=== PATIENT | male | born 1950 | race Asian ===

== ENCOUNTER 2019-04-02 08:01 | Day surgery (SDC) | payer OTHER ==
[2019-04-01 15:03] VITALS: BMI 22.6
[2019-04-02 10:13] VITALS: TEMP 97.6
[2019-04-02 10:27] VITALS: PULSE 55
[2019-04-02 13:03] VITALS: BP 107/73
--- NOTE | 2019-04-04 17:12 | PATH ---
Surgical Pathology Report Patient Name: JIHAN BUTT [facility]. Rec. #: [id number] /Age/Gender: 1950 (Age: 68) / M Account: [id number] Location: [facility]-ENDOSCOPY Taken: 04/02/2019 Received: 04/02/2019 Reported: 04/04/2019 Physicians: Steven Dugan M.D. Specimen(s) Received A: GASTRIC ANTRUM AND BODY B: ESOPHAGUS Clinical History Personal history of colon polyps, family history of colon cancer, gassy feeling Postoperative diagnosis: Gastritis chronic, normal colonoscopy Final Diagnosis A. GASTRIC ANTRUM AND BODY, BIOPSY: GASTRIC MUCOSA WITH MODERATELY ACTIVE CHRONIC GASTRITIS. IMMUNOSTAIN FOR H. PYLORI IS POSITIVE. POSITIVE FOR INTESTINAL METAPLASIA. NEGATIVE FOR DYSPLASIA. B. ESOPHAGUS, BIOPSY: ESOPHAGEAL MUCOSA WITH ACUTE AND CHRONIC ESOPHAGITIS. PAS STAIN HIGHLIGHTS FUNGAL HYPHAE, MORPHOLOGICALLY CONSISTENT WITH MACHO SPECIES. Electronically Signed Anil Sagastume M.D. Gross Description A. Received in formalin labeled "biopsy gastric antrum and body," is a 1.1 x 0.7 x 0.2 cm aggregate of chavez soft tissue fragments. The formalin is filtered and the specimen is entirely submitted in one cassette. B. Received in formalin, labeled "biopsy esophagus" are 2 chavez, irregular portions of soft tissue measuring 0.3 and 0.4 cm. in greatest dimension. The specimens are submitted in toto in one cassette. 04/03/2019 saudi04/03/2019
== END 2019-04-02 11:20 | disposition home or self-care (01) ==
LOC: JASU-ENDO 08:01
PROVIDERS: ATTEND Internal Medicine Gastroenterology
PROC: 0DB58ZX Excision of Esophagus, Via Natural or Artificial Opening Endoscopic, Diagnostic (ICD-10-PCS; 2019-04-02)
PROC: 0DB68ZX Excision of Stomach, Via Natural or Artificial Opening Endoscopic, Diagnostic (ICD-10-PCS; 2019-04-02)
PROC: 0DJD8ZZ Inspection of Lower Intestinal Tract, Via Natural or Artificial Opening Endoscopic (ICD-10-PCS; principal; 2019-04-02 10:30)
DX: Z12.11 Encounter for screening for malignant neoplasm of colon (principal); Z86.010 Personal history of colon polyps; E11.9 Type 2 diabetes mellitus without complications; Z79.84 Long term (current) use of oral hypoglycemic drugs; K29.50 Unspecified chronic gastritis without bleeding; K20.8 Other esophagitis
CPT/HCPCS: 43239; G0105

== ENCOUNTER 2023-10-20 15:59 | Emergency (ER) | payer OTHER ==
[2023-10-20 16:10] VITALS: BP 136/73; PULSE 58; RESP 18; TEMP 98.4; BMI 24.3
[2023-10-20] MEDS ORDERED: CEFUROXIME AXETIL 500 MG TABLET ONE (17:46)
[2023-10-20] MEDS: CEFUROXIME AXETIL 500 MG TABLET PO ONE (17:50)
== END 2023-10-20 18:00 | disposition home or self-care (01) ==
LOC: FER 15:59
DX: M79.89 Other specified soft tissue disorders (principal); M79.662 Pain in left lower leg
CPT/HCPCS: 93971-TC; 99284-25

== ENCOUNTER 2024-06-02 16:55 | Inpatient (IN) | payer OTHER ==
[2024-06-02 17:56] LABS: BASO % 0.4 % (0-2.0); HEMOGLOBIN 14.6 GM/dL (11.7-16.9); LYMPH % 4.9 % (8-40); MCH 31.6 pg (25.7-33.7); MCHC 33.3 g/dl (32.0-35.9); MEAN CELL VOLUME 95.1 fl (80-96); MEAN PLT VOLUME 7.7 fl (7.5-11.1); NEUT % 87.7 % (42.8-82.8); PLATELET COUNT 197 10^3/uL (134-434); RBC 4.62 M/mm3 (4.00-5.60); RDW 14.5 % (11.9-15.9)
[2024-06-02 18:14] LABS: POTASSIUM 4.4 mmol/L (3.5-5.1)
[2024-06-02 18:15] LABS: ALBUMIN 3.8 g/dl (3.4-5.0); CALCIUM 9.4 mg/dL (8.5-10.1); MAGNESIUM 2.1 mg/dL (1.8-2.4)
[2024-06-02 18:19] LABS: CREATININE 1.1 mg/dL (0.55-1.3)
[2024-06-02 18:21] LABS: BILIRUBIN,TOTAL 0.5 mg/dL (0.2-1); TOT PROT 6.8 g/dl (6.4-8.2)
[2024-06-02 18:23] LABS: BLOOD UREA NITROGEN 29.9 mg/dL (7-18)
[2024-06-02 18:33] LABS: EPI CELLS 2 /uL (0-25.1); HYALINE CASTS 0 /uL (0-3.1); PH,URINE 5.5 (5.0-8.0); URINE APPEARANCE CLEAR; URINE BACTERIA 42 /uL (0-1359); URINE BILIRUBIN NEGATIVE (NEGATIVE); URINE COLOR YELLOW; URINE GLUCOSE (UA) 3+ (NEGATIVE); URINE KETONE 1+ (NEGATIVE); URINE LEUK ESTERASE NEGATIVE (NEGATIVE); URINE NITRITE NEGATIVE (NEGATIVE); URINE PROTEIN TRACE (NEGATIVE); URINE RBC 120 /uL (0-23.9); URINE UROBILINOGEN 0.2 mg/dL (0.2-1.0); URINE WBC 5 /uL (0-25.8)
[2024-06-02] MEDS: ACETAMINOPHEN 500 MG TABLET (FP) PO ONE (18:43)
[2024-06-02] MEDS ORDERED: ACETAMINOPHEN 500 MG TABLET (FP) ONE (18:45)
[2024-06-02] MEDS: LACTATED RINGERS SOLUTION 1000 ML INFUS.BAG IV ONE (19:20)
[2024-06-03] MEDS ORDERED: OSELTAMIVIR PHOSPHATE 75 MG CAPSULE ONE ×2 (02:11→10:11)
[2024-06-03] MEDS: OSELTAMIVIR PHOSPHATE 75 MG CAPSULE PO SCH (02:29)
[2024-06-03] MEDS: SODIUM CHLORIDE 1,000 ML IV SCH (02:31)
[2024-06-03] MEDS ORDERED: HEPARIN NA (PORCINE) 5,000 UNITS/ML 1ML VIAL SQ SCH (06:00)
[2024-06-03 06:55] LABS: HEMATOCRIT 44.6 % (35.4-49); HEMOGLOBIN 14.4 GM/dL (11.7-16.9); MCH 31.2 pg (25.7-33.7); MCHC 32.3 g/dl (32.0-35.9); MEAN CELL VOLUME 96.6 fl (80-96); PLATELET COUNT 178 10^3/uL (134-434); RBC 4.62 M/mm3 (4.00-5.60); RDW 14.8 % (11.9-15.9); WHITE BLOOD COUNT 6.8 K/mm3 (4.0-10.0)
[2024-06-03] MEDS ORDERED: INSULIN ASPART SLIDING SCALE (NOVOLOG) 1 VIAL SQ SCH (07:00)
[2024-06-03 07:16] LABS: CALCIUM 8.9 mg/dL (8.5-10.1)
[2024-06-03 07:18] LABS: ALBUMIN 3.6 g/dl (3.4-5.0); MAGNESIUM 2.3 mg/dL (1.8-2.4)
[2024-06-03 07:19] LABS: CREATININE 0.8 mg/dL (0.55-1.3)
[2024-06-03 07:21] LABS: BILIRUBIN,TOTAL 0.8 mg/dL (0.2-1); PHOSPHOROUS 3.4 mg/dL (2.5-4.9); TOT PROT 6.5 g/dl (6.4-8.2)
[2024-06-03] MEDS: INSULIN ASPART SLIDING SCALE (NOVOLOG) 1 VIAL SQ SCH (08:17)
[2024-06-03] MEDS ORDERED: INSULIN ASPART SLIDING SCALE (NOVOLOG) 1 VIAL SQ ONE ×2 (13:40→19:03)
[2024-06-03] MEDS: ACETAMINOPHEN 325 MG TABLET (FP) PO PRN (21:14)
[2024-06-04 06:29] VITALS: BMI 21.1
[2024-06-04 08:31] LABS: BASO % 0.2 % (0-2.0); HEMATOCRIT 41.3 % (35.4-49); HEMOGLOBIN 13.9 GM/dL (11.7-16.9); LYMPH % 9.1 % (8-40); MCH 31.7 pg (25.7-33.7); MCHC 33.7 g/dl (32.0-35.9); MEAN CELL VOLUME 93.9 fl (80-96); MEAN PLT VOLUME 8.1 fl (7.5-11.1); MONO % 8.5 % (3.8-10.2); NEUT % 82.2 % (42.8-82.8); PLATELET COUNT 169 10^3/uL (134-434); RDW 14.7 % (11.9-15.9); WHITE BLOOD COUNT 7.5 K/mm3 (4.0-10.0)
[2024-06-04 08:38] LABS: POTASSIUM 3.8 mmol/L (3.5-5.1)
[2024-06-04 08:43] LABS: ALBUMIN 3.2 g/dl (3.4-5.0); CALCIUM 8.4 mg/dL (8.5-10.1)
[2024-06-04 08:44] LABS: BLOOD UREA NITROGEN 26.4 mg/dL (7-18)
[2024-06-04 08:47] LABS: CREATININE 0.8 mg/dL (0.55-1.3)
[2024-06-04 08:48] LABS: BILIRUBIN,TOTAL 0.9 mg/dL (0.2-1); TOT PROT 6.2 g/dl (6.4-8.2)
[2024-06-04] MEDS ORDERED: INSULIN ASPART SLIDING SCALE (NOVOLOG) 1 VIAL SQ ONE (17:00)
[2024-06-04 17:03] LABS: N-TERMINAL BNP 47.8 pg/ml (5-125)
[2024-06-04] MEDS: ENOXAPARIN NA (PORCINE) 40 MG/0.4 ML DISP.SYRIN SQ SCH (17:43)
[2024-06-05 07:05] LABS: BASO % 0.3 % (0-2.0); EOS % 0.1 % (0-4.5); HEMOGLOBIN 13.7 GM/dL (11.7-16.9); LYMPH % 14.3 % (8-40); MCH 31.4 pg (25.7-33.7); MCHC 33.3 g/dl (32.0-35.9); MEAN CELL VOLUME 94.3 fl (80-96); MEAN PLT VOLUME 8.1 fl (7.5-11.1); NEUT % 76.3 % (42.8-82.8); PLATELET COUNT 163 10^3/uL (134-434); RBC 4.34 M/mm3 (4.00-5.60); RDW 14.8 % (11.9-15.9); WHITE BLOOD COUNT 6.2 K/mm3 (4.0-10.0)
[2024-06-05 07:25] LABS: POTASSIUM 4.1 mmol/L (3.5-5.1)
[2024-06-05 07:27] LABS: CALCIUM 8.2 mg/dL (8.5-10.1)
[2024-06-05 07:31] LABS: CREATININE 0.7 mg/dL (0.55-1.3)
[2024-06-05 07:32] LABS: BILIRUBIN,TOTAL 0.7 mg/dL (0.2-1)
[2024-06-05 07:33] LABS: TOT PROT 5.8 g/dl (6.4-8.2)
[2024-06-05] MEDS: LATANOPROST 0.005% OPHTH SOLN 2.5ML BOTTLE OU SCH (22:14)
[2024-06-05] MEDS: BRIMONIDINE TARTRATE 0.2% OPHTHALMIC 5 ML BOTTLE OU SCH (22:14)
[2024-06-05] MEDS: DORZOLAMIDE 2% HCL OPHTHALMIC SOLUTION 10 ML BOTTLE OU SCH (22:15)
[2024-06-06 08:54] LABS: BASO % 0.3 % (0-2.0); EOS % 0.1 % (0-4.5); HEMATOCRIT 40.4 % (35.4-49); HEMOGLOBIN 13.5 GM/dL (11.7-16.9); LYMPH % 15.9 % (8-40); MCH 31.6 pg (25.7-33.7); MCHC 33.5 g/dl (32.0-35.9); MEAN CELL VOLUME 94.4 fl (80-96); MONO % 8.5 % (3.8-10.2); NEUT % 75.2 % (42.8-82.8); PLATELET COUNT 169 10^3/uL (134-434); RBC 4.28 M/mm3 (4.00-5.60); RDW 14.5 % (11.9-15.9); WHITE BLOOD COUNT 6.3 K/mm3 (4.0-10.0)
[2024-06-06 09:13] LABS: POTASSIUM 4.2 mmol/L (3.5-5.1)
[2024-06-06 09:25] LABS: BLOOD UREA NITROGEN 23.2 mg/dL (7-18); CALCIUM 8.7 mg/dL (8.5-10.1)
[2024-06-06 09:28] LABS: CREATININE 0.7 mg/dL (0.55-1.3)
[2024-06-06 09:30] LABS: BILIRUBIN,TOTAL 0.9 mg/dL (0.2-1)
[2024-06-07 08:24] LABS: BASO % 0.5 % (0-2.0); EOS % 0.4 % (0-4.5); HEMATOCRIT 39.4 % (35.4-49); LYMPH % 26.6 % (8-40); MCH 30.9 pg (25.7-33.7); MEAN CELL VOLUME 93.7 fl (80-96); MEAN PLT VOLUME 7.9 fl (7.5-11.1); NEUT % 62.5 % (42.8-82.8); PLATELET COUNT 203 10^3/uL (134-434); RBC 4.21 M/mm3 (4.00-5.60); RDW 14.4 % (11.9-15.9); WHITE BLOOD COUNT 4.4 K/mm3 (4.0-10.0)
[2024-06-07 08:42] LABS: POTASSIUM 4.2 mmol/L (3.5-5.1)
[2024-06-07 08:44] LABS: ALBUMIN 2.9 g/dl (3.4-5.0); BLOOD UREA NITROGEN 23.4 mg/dL (7-18)
[2024-06-07 08:48] LABS: CREATININE 0.7 mg/dL (0.55-1.3)
[2024-06-07 08:49] LABS: BILIRUBIN,TOTAL 0.9 mg/dL (0.2-1); TOT PROT 5.9 g/dl (6.4-8.2)
[2024-06-07] MEDS: REGADENOSON 0.4 MG/5 ML PRE-FILLED SYRINGE IVPUSH ONE (11:32)
[2024-06-07 14:09] VITALS: BP 123/82; PULSE 79; RESP 18; TEMP 98.4
== END 2024-06-07 17:35 | disposition home or self-care (01) | DRG 204 ==
LOC: JER 16:55 → JERBED 21:58 → OBSVTOIN 06-03 12:59 → J4S 06-03 20:27
PROVIDERS: ADMIT Internal Medicine; ATTEND Nurse Practitioner Family
DX: R55 Syncope and collapse (principal); I10 Essential (primary) hypertension; E78.5 Hyperlipidemia, unspecified; E11.9 Type 2 diabetes mellitus without complications; H40.9 Unspecified glaucoma; E86.0 Dehydration; J10.1 Influenza due to other identified influenza virus with other respiratory manifestations; R00.1 Bradycardia, unspecified; I45.10 Unspecified right bundle-branch block; E05.90 Thyrotoxicosis, unspecified without thyrotoxic crisis or storm; S22.32XA Fracture of one rib, left side, initial encounter for closed fracture; V47.0XXA Car driver injured in collision with fixed or stationary object in nontraffic accident, initial encounter; Y92.488 Other paved roadways as the place of occurrence of the external cause; Y99.9 Unspecified external cause status
CPT/HCPCS: 0241U-QW; 36415; 70450-TC; 71045-TC-FY; 71250-TC; 72125-TC; 74176-TC; 78452-TC; 80053; 81003; 82550; 82553; 82962; 83036; 83605; 83735; 83880; 84100; 84439; 84443; 84481; 84484; 85025; 85027; 86850; 86900; 86901; 87040; 87086; 93005; 93010; 93017; 93306-TC; 93880-TC; 94010; 99285-25; A9502; G0378